=== PATIENT | male | born 1950 | race Caucasian/White ===

== ENCOUNTER → 2018-01-13 | Day surgery (SDC) | payer MEDICARE ==
[~2018-01-13] MED LIST: ALBU8.5H8 IH; BUDE10.2 IH; CYCL-331 PO; LIDOCAINE 1% PF 2 ML VIAL. ID PRN; LISI10TA2 PO; NIAC500T PO; OMEG500C PO; ONDANSETRON PF 4 MG/2 ML VIAL. IV PRN; PANT40TA5 PO; PRED10TA2 PO; PROPOFOL 10,000 MCG/ML (20ML) VIAL IV ONE; PROPOFOL 40 ML IV ONE; TIMO5SOL OP; TIMO5TAB PO; TRAZ-85 PO; TRAZ-86 PO; TRIA1TAB5 PO; Trazodone Hcl PO; Triamterene/Hydrochlorothiazid PO
[2018-01-13] MEDS: IV RINGERS SOLUTION,LACTATED 1,000 ML IV SCH (15:04)
[2018-01-13 16:35] VITALS: BP 145/79
== END ==
LOC: SURG 14:06
PROVIDERS: ATTEND Internal Medicine Gastroenterology
DX: Z12.11 Encounter for screening for malignant neoplasm of colon (principal); K63.5 Polyp of colon; K57.30 Diverticulosis of large intestine without perforation or abscess without bleeding; I10 Essential (primary) hypertension; K21.9 Gastro-esophageal reflux disease without esophagitis; M19.90 Unspecified osteoarthritis, unspecified site; N40.0 Benign prostatic hyperplasia without lower urinary tract symptoms; Z88.8 Allergy status to other drugs, medicaments and biological substances; Z88.6 Allergy status to analgesic agent; Z72.89 Other problems related to lifestyle; Z96.652 Presence of left artificial knee joint; Z98.890 Other specified postprocedural states; Z86.73 Personal history of transient ischemic attack (TIA), and cerebral infarction without residual deficits
CPT/HCPCS: 45385; G0105; J2704; J7120

== ENCOUNTER → 2019-09-16 | Outpatient (CLI) | payer MEDICARE ==
[2018-01-13 16:35] VITALS: BP 145/79
[~2019-09-16] MED LIST changes: +ALBU2.5V8 IH; -ALBU8.5H8 IH; -LIDOCAINE 1% PF 2 ML VIAL. ID PRN; -ONDANSETRON PF 4 MG/2 ML VIAL. IV PRN; -PROPOFOL 10,000 MCG/ML (20ML) VIAL IV ONE; -PROPOFOL 40 ML IV ONE; +TRAZ-120 PO; +TRAZ-125 PO; -TRAZ-85 PO; -TRAZ-86 PO
== END | disposition home or self-care (01) ==
LOC: LAB 10:58
PROVIDERS: ATTEND Urology
DX: N40.1 Benign prostatic hyperplasia with lower urinary tract symptoms (principal)
CPT/HCPCS: 87086